=== PATIENT | female | born 1950 | race Two or more races ===

== ENCOUNTER 2019-08-06 17:44 | Emergency (ER) | payer MEDICARE, MEDICAID ==
[~2019-08-06] VITALS: Ht 149.9 cm; Wt 68.0 kg
--- NOTE | 2019-08-06 17:55 | NUR ---
GENERAL BODY PAIN S/P GLF ON JULY 12. NO RELIEF FROM IBU. PATIENT A/OX4, NO DISTRESS NOTED, PLACED ON THE BED, CHANGED INTO GOWN. ATTACHED TO THE INTEGRATED LOGIST[employer] OPERATIONS MANAGER.
--- NOTE | 2019-08-06 19:15 | NUR ---
PATIENT SEEN BY DR. REINOSO FOR EVAL.
[2019-08-06] MEDS ORDERED: CYCLOBENZAPRINE 10 MG TABLET ONE (19:44)
[2019-08-06] MEDS ORDERED: ACETAMINOPHEN 325 MG TABLET ONE (19:45)
--- NOTE | 2019-08-06 19:52 | NUR ---
BHUPENDRA # , CALL FOR HOMEBIRTH MIDWIFE.
[2019-08-06] MEDS ORDERED: CYCLOBENZAPRINE 10 MG TABLET PO ONE (20:00)
[2019-08-06] MEDS ORDERED: ACETAMINOPHEN 325 MG TABLET PO ONE (20:00)
--- NOTE | 2019-08-06 21:08 | NUR ---
ANDREE PICKING UP PATIENT.
[2019-08-06 21:20] VITALS: BP 138/75
--- NOTE | 2019-08-06 21:20 | NUR ---
Patient discharged to home in stable condition. Written and verbal after care instructions given. Patient verbalizes understanding of instruction. Pt ambulatory with a steady gait
== END 2019-08-06 21:21 | disposition home or self-care (01) ==
LOC: ER 17:45
DX: M62.830 Muscle spasm of back (principal); M54.6 Pain in thoracic spine; I10 Essential (primary) hypertension; E11.9 Type 2 diabetes mellitus without complications; E78.00 Pure hypercholesterolemia, unspecified; Z60.2 Problems related to living alone

== ENCOUNTER 2022-04-28 12:24 | Emergency (ER) | payer OTHER ==
[~2022-04-28] VITALS: Ht 152.4 cm; Wt 65.8 kg
--- NOTE | 2022-04-28 12:32 | NUR ---
MISTY [id number]"From Home CP started this am sharp radiating to left arm initial 07/10 given Nitro now 04/09 BS-154. PT AAOX4, VSS. RR EVEN & UNLABORED. PLACED ON HOSPITAL AIDE, SR. PT SEEN & EVAL'D BY DR. LANCASTER. WILL CONT TO MONITOR.
--- NOTE | 2022-04-28 12:37 | NUR ---
SWAB FOR COVID19 SENT TO LAB
--- NOTE | 2022-04-28 12:49 | NUR ---
X-RAY TECH. AT BED SIDE
[2022-04-28 12:52] LABS: BASOPHILS % (AUTO) 0.4 % (0.0-2.0); EOSINOPHILS % (AUTO) 1.3 % (0.0-6.0); HEMATOCRIT 37 % (33-45); HEMOGLOBIN 12.5 g/dL (11.5-14.8); LYMPHOCYTES # (AUTO) 4.3 K/uL (0.8-4.8); LYMPHOCYTES % (AUTO) 47.3 % (20.0-44.0); MEAN CORPUSCULAR HGB CONC 34 g/dl (31.0-36.0); MEAN CORPUSCULAR VOLUME 95 fL (82-100); MONOCYTES # (AUTO) 0.9 K/uL (0.1-1.30); MONOCYTES % (AUTO) 10.1 % (2.0-12.0); NEUTROPHILS # (AUTO) 3.7 K/uL (1.8-8.9); NEUTROPHILS % (AUTO) 40.9 % (43.0-81.0); PLATELET COUNT (AUTO) 302 K/uL (150-450); RED BLOOD CELL COUNT(AUTO) 3.87 MIL/uL (4.0-5.2)
[2022-04-28] MEDS ORDERED: SERT50TA12 PO (12:57)
[2022-04-28] MEDS ORDERED: SEMA7TAB PO (12:57)
[2022-04-28] MEDS ORDERED: LOSA25TA27 PO (12:57)
[2022-04-28] MEDS ORDERED: ASPI-1420 PO (12:57)
[2022-04-28] MEDS ORDERED: GABA300C PO (12:57)
[2022-04-28] MEDS ORDERED: SIMV-49 PO (12:57)
[2022-04-28] MEDS ORDERED: CYCL5.5D EACHEYE (12:57)
[2022-04-28] MEDS ORDERED: CHOL100043 PO (12:59)
[2022-04-28] MEDS ORDERED: VITA1TAB56 PO (12:59)
--- NOTE | 2022-04-28 13:14 | NUR ---
PT SITTING UP, DENIES CP, SOB, DIZZINESS, N/V, VARGAS AT THIS TIME. ON TELE, SR. WILL CONT TO MONITOR.
--- NOTE | 2022-04-28 13:15 | NUR ---
MOVE SHEET SUBMITTED.
--- NOTE | 2022-04-28 13:41 | NUR ---
LEONARDO SAMPSON REGAL [phone] PT GOING TO [facility].
[2022-04-28 13:58] LABS: ALANINE AMINOTRANSFERASE 21 U/L (12-78); ALBUMIN 3.6 g/dL (3.4-5.0); ALKALINE PHOSPHATASE 84 U/L (46-116); ASPARTATE AMINOTRANSFERASE 19 U/L (15-37); BILIRUBIN,DIRECT 0.1 mg/dL (0.0-0.2); BILIRUBIN,TOTAL 0.3 mg/dL (0.2-1.0); CALCIUM, SERUM 9.2 mg/dL (8.5-10.1); CARBON DIOXIDE 24 mmol/L (21-32); CHLORIDE 106 mmol/L (98-107); CREATININE 0.9 mg/dL (0.6-1.3); GLUCOSE 117 mg/dL (74-106); SODIUM SERUM 139 mmol/L (136-145); TOTAL PROTEIN, SERUM 8.1 g/dL (6.4-8.2); UREA NITROGEN, BLOOD 13 mg/dL (7-18)
--- NOTE | 2022-04-28 14:45 | NUR ---
DR. LANCASTER PEER TO PEER W DR. STRONG.
--- NOTE | 2022-04-28 16:02 | NUR ---
SPOKE TO CM FOR UPDATE, WAITING ON BED AVAILABILITY.
--- NOTE | 2022-04-28 16:07 | NUR ---
PT ASLEEP, EASILY AWAKEN BY VERBAL STIMULI. DENIES CP, SOB, DIZZINESS, N/V, VARGAS AT THIS TIME. ON TELE, SR. WILL CONT TO MONITOR.
--- NOTE | 2022-04-28 17:59 | NUR ---
ACCEPTED AT [facility] DR. STRONG ROOM [id number] [phone] MOTOR LODGE CLERK ETA 2130 FOR TRANSPORT
--- NOTE | 2022-04-28 18:11 | NUR ---
CALLED [facility] FOR REPORT, NO ANSWER.
--- NOTE | 2022-04-28 20:32 | NUR ---
REPORT GIVEN TO MIA
--- NOTE | 2022-04-28 21:47 | NUR ---
JERMAINE GLASS [employer]GARCANE PLANTER TO FOLLOW UP WITH THE TRANSPORTATION. [facility] IS THE ASSIGNED AMBULANCE
--- NOTE | 2022-04-28 22:16 | NUR ---
QUAN JOURNEYMAN LINEMAN CALLED BACK. NEW ASSIGNED ROOM 215-A / NURSE MIA / FREDY NUMBER FOR REPORT: AMBULANCE ETA 5 MINUTES.
[2022-04-28 22:34] VITALS: BP 156/70
--- NOTE | 2022-04-28 22:34 | NUR ---
PT PICKED UP BY [facility]. V/S STABLE AT TIME OF TRANSFER. PT PACKET PROVIDED TO PUBLIC HEALTH SERVICE OFFICER.
== END 2022-04-28 22:35 | disposition short-term general hospital (02) ==
LOC: ER 12:42
DX: R07.9 Chest pain, unspecified (principal); Z20.822 Contact with and (suspected) exposure to COVID-19; R94.31 Abnormal electrocardiogram [ECG] [EKG]; Z79.899 Other long term (current) drug therapy; E78.00 Pure hypercholesterolemia, unspecified; I10 Essential (primary) hypertension; E11.9 Type 2 diabetes mellitus without complications
CPT/HCPCS: 36415; 71045; 80048; 80076; 83880; 84484; 85025; 87081; 87426; 93005; 99285; C9803

== ENCOUNTER 2025-02-15 07:39 | Inpatient (IN) | payer MEDICARE, OTHER ==
[~2025-02-15] VITALS: Ht 154.9 cm; Wt 72.6 kg
[~2025-02-15 07:39] MED LIST: ASPI-1420 PO; CHOL100043 PO; CYCL5.5D EACHEYE; GABA300C PO; LOSA25TA27 PO; SEMA7TAB PO; SERT50TA12 PO; SIMV-49 PO; VITA1TAB56 PO
[2025-02-15] MEDS ORDERED: ONDANSETRON HCL/PF 4 MG/2 ML VIAL ONE (08:14)
[2025-02-15] MEDS ORDERED: MORPHINE SULFATE INJ 4 MG/ML DISP.SYRIN ONE (08:15)
[2025-02-15 08:20] LABS: BASOPHILS % (AUTO) 0.3 % (0.0-2.0); EOSINOPHILS # (AUTO) 0.1 K/uL (0.0-0.7); EOSINOPHILS % (AUTO) 0.7 % (0.0-6.0); HEMATOCRIT 43 % (33-45); HEMOGLOBIN 14.5 g/dL (11.5-14.8); LYMPHOCYTES # (AUTO) 4.4 K/uL (0.8-4.8); LYMPHOCYTES % (AUTO) 37.1 % (20.0-44.0); MEAN CORPUSCULAR HEMOGLOBIN 34 PG (26.0-33.0); MEAN CORPUSCULAR HGB CONC 34 g/dl (31.0-36.0); MEAN CORPUSCULAR VOLUME 99 fL (82-100); MONOCYTES # (AUTO) 0.9 K/uL (0.1-1.30); MONOCYTES % (AUTO) 7.9 % (2.0-12.0); NEUTROPHILS # (AUTO) 6.4 K/uL (1.8-8.9); PLATELET COUNT (AUTO) 297 K/uL (150-450); RED BLOOD CELL COUNT(AUTO) 4.31 MIL/uL (4.0-5.2); RED CELL DISTRIBUTION WIDTH 17.4 % (11.5-15.0); WHITE BLOOD COUNT (AUTO) 11.9 K/uL (4.3-11.0)
[2025-02-15 08:28] LABS: CALCIUM, SERUM 9.4 mg/dL (8.5-10.1); CREATININE 0.9 mg/dL (0.6-1.3); POTASSIUM 4.5 mmol/L (3.5-5.1)
[2025-02-15] MEDS: IV NS 0.9% 500 ML BAG IV ONE (08:36)
[2025-02-15] MEDS: MORPHINE SULFATE INJ 2 MG/ML DISP.SYRIN IV ONE (08:36)
[2025-02-15] MEDS: ONDANSETRON HCL/PF 4 MG/2 ML VIAL IVP ONE (08:37)
[2025-02-15] MEDS ORDERED: CT SWABBABLE VALVE TRANS SET 1 EA INFUS.SET MC ONE (08:48)
[2025-02-15] MEDS ORDERED: IV NS 0.9% 250 ML IV ONE (08:48)
[2025-02-15] MEDS ORDERED: IOHEXOL-300 100 ML VIAL IV ONE ×2 (08:48)
[2025-02-15] MEDS ORDERED: MAGNESIUM HYDROXIDE 30 ML UDC PO PRN (12:00)
[2025-02-15] MEDS ORDERED: ONDANSETRON HCL/PF 4 MG/2 ML VIAL IVP PRN (12:00)
[2025-02-15] MEDS ORDERED: MAG HYDROX/AL HYDROX/SIMETH 30 ML UDC PO PRN (12:00)
[2025-02-15] MEDS ORDERED: OMEG100037 PO (15:04)
[2025-02-15] MEDS ORDERED: EZET10TA32 PO (15:04)
[2025-02-15] MEDS ORDERED: TIZA-180 PO (15:04)
[2025-02-15] MEDS ORDERED: EMPA10TA PO (15:04)
[2025-02-15] MEDS ORDERED: REPA0.5T6 PO (15:04)
[2025-02-15] MEDS ORDERED: HYDROCODONE/APAP 5/325MG TABLET PO PRN (15:30)
[2025-02-15] MEDS ORDERED: DEXTROSE 50%-WATER 50 ML DISP.SYRIN IV PRN (15:30)
[2025-02-15] MEDS ORDERED: Medication Not On Formulary EA (Omega-3/Dha/Epa/Fish Oil (Fish Oil 1,000 mg Softgel) 2,0 PO SCH (17:00)
[2025-02-15] MEDS: BLOOD SUGAR DIAGNOSTIC 1 EACH STRIP IN SCH (17:33)
[2025-02-15] MEDS: REPAGLINIDE 0.5 MG TABLET PO SCH (17:48)
[2025-02-15] MEDS: SIMVASTATIN 20 MG TABLET PO SCH (17:48)
[2025-02-15] MEDS: GABAPENTIN 300 MG CAPSULE PO SCH (17:48)
[2025-02-15] MEDS: ENOXAPARIN SODIUM 40 MG/0.4 ML DISP.SYRIN SQ SCH (17:49)
[2025-02-15] MEDS: ACETAMINOPHEN 325 MG TABLET PO PRN (19:54)
[2025-02-15 20:00] VITALS: BP 133/80; TEMP 98.1; O2SAT 97
[2025-02-16 06:40] LABS: BASOPHILS % (AUTO) 0.3 % (0.0-2.0); EOSINOPHILS # (AUTO) 0.1 K/uL (0.0-0.7); EOSINOPHILS % (AUTO) 0.4 % (0.0-6.0); HEMATOCRIT 40 % (33-45); HEMOGLOBIN 13.8 g/dL (11.5-14.8); LYMPHOCYTES # (AUTO) 4.7 K/uL (0.8-4.8); LYMPHOCYTES % (AUTO) 38.6 % (20.0-44.0); MEAN CORPUSCULAR HEMOGLOBIN 34 PG (26.0-33.0); MEAN CORPUSCULAR HGB CONC 35 g/dl (31.0-36.0); MEAN CORPUSCULAR VOLUME 98 fL (82-100); MONOCYTES # (AUTO) 1.3 K/uL (0.1-1.30); MONOCYTES % (AUTO) 11.1 % (2.0-12.0); NEUTROPHILS % (AUTO) 49.6 % (43.0-81.0); PLATELET COUNT (AUTO) 298 K/uL (150-450); RED BLOOD CELL COUNT(AUTO) 4.08 MIL/uL (4.0-5.2); RED CELL DISTRIBUTION WIDTH 17.4 % (11.5-15.0); WHITE BLOOD COUNT (AUTO) 12.1 K/uL (4.3-11.0)
[2025-02-16 06:49] LABS: MAGNESIUM 2.3 mg/dL (1.8-2.4); PHOSPHORUS 3.8 mg/dL (2.5-4.9)
[2025-02-16 08:00] VITALS: BP 119/59; TEMP 98.2; O2SAT 96
[2025-02-16] MEDS: EZETIMIBE 10 MG TABLET PO SCH (09:08)
[2025-02-16] MEDS: LOSARTAN POTASSIUM 25 MG TABLET PO SCH (09:08)
[2025-02-16] MEDS: TIZANIDINE HCL 4 MG TABLET PO SCH (09:08)
[2025-02-16] MEDS: SERTRALINE HCL 50 MG TABLET PO SCH (09:08)
[2025-02-16] MEDS: PANTOPRAZOLE 40 MG VIAL IV SCH (09:09)
[2025-02-16] MEDS: EMPAGLIFLOZIN 10 MG TABLET PO SCH (09:10)
[2025-02-16 16:00] VITALS: BP 96/64; TEMP 97.9
[2025-02-16] MEDS: INSULIN REGULAR, HUMAN 100 UNIT/ML 3 ML VIAL SQ PRN (17:31)
[2025-02-16 20:00] VITALS: BP 104/63; TEMP 97.5; O2SAT 97
[2025-02-17 06:56] LABS: BASOPHILS % (AUTO) 0.3 % (0.0-2.0); EOSINOPHILS # (AUTO) 0.1 K/uL (0.0-0.7); HEMATOCRIT 38 % (33-45); HEMOGLOBIN 13.5 g/dL (11.5-14.8); LYMPHOCYTES # (AUTO) 4.7 K/uL (0.8-4.8); LYMPHOCYTES % (AUTO) 41.9 % (20.0-44.0); MEAN CORPUSCULAR HEMOGLOBIN 35 PG (26.0-33.0); MEAN CORPUSCULAR HGB CONC 35 g/dl (31.0-36.0); MEAN CORPUSCULAR VOLUME 98 fL (82-100); MONOCYTES % (AUTO) 8.8 % (2.0-12.0); NEUTROPHILS # (AUTO) 5.4 K/uL (1.8-8.9); PLATELET COUNT (AUTO) 272 K/uL (150-450); WHITE BLOOD COUNT (AUTO) 11.3 K/uL (4.3-11.0)
[2025-02-17 07:36] LABS: CALCIUM, SERUM 9.1 mg/dL (8.5-10.1); CREATININE 0.9 mg/dL (0.6-1.3); MAGNESIUM 2.3 mg/dL (1.8-2.4); PHOSPHORUS 2.9 mg/dL (2.5-4.9); POTASSIUM 3.9 mmol/L (3.5-5.1)
[2025-02-17 08:00] VITALS: BP 134/68; TEMP 98.4; O2SAT 96
[2025-02-17] MEDS: PANTOPRAZOLE 40 MG TABLET.DR PO SCH (09:02)
[2025-02-17] MEDS: IV NS 0.9% 1,000 ML IV SCH (11:06)
[2025-02-17 15:27] LABS: APPEARANCE,URINE SLIGHTLY CLOUDY (CLEAR); BILIRUBIN,URINE NEGATIVE (NEGATIVE); BLOOD, URINE TRACE-INTA Ery/uL (NEGATIVE); COLOR,URINE YELLOW (YELLOW); KETONES,URINE 3+ mg/dL (NEGATIVE); LEUKOCYTE ESTERASE ,URINE 1+ (NEGATIVE); NITRITE, URINE POSITIVE (NEGATIVE); PROTEIN,URINE NEGATIVE (NEGATIVE); UGLUCOSE 2+ mg/dL (NEGATIVE); UROBILINOGEN,URINE 0.2 EU/dL (0.2)
[2025-02-17 16:00] VITALS: BP_SYST 129; BP_SYST 96; BP_DIAS 61; BP_DIAS 64; TEMP 97.7; TEMP 98.6; O2SAT 94; O2SAT 97
[2025-02-17 16:08] LABS: ADD URINE CULTURE YES; BACTERIA,URINE 3+ /HPF (None Seen); SQUAMOUS EPITHELIAL CELL,UR 0-2 /HPF (None Seen)
[2025-02-17] MEDS: CEFTRIAXONE 1 G in IV D5W 50 ML IV SCH (17:21)
[2025-02-17 20:00] VITALS: BP 94/56; TEMP 98.5; O2SAT 98
[2025-02-18 07:12] LABS: BASOPHILS % (AUTO) 0.2 % (0.0-2.0); EOSINOPHILS # (AUTO) 0.1 K/uL (0.0-0.7); EOSINOPHILS % (AUTO) 1.7 % (0.0-6.0); HEMATOCRIT 39 % (33-45); HEMOGLOBIN 13.4 g/dL (11.5-14.8); LYMPHOCYTES # (AUTO) 3.9 K/uL (0.8-4.8); LYMPHOCYTES % (AUTO) 45.4 % (20.0-44.0); MEAN CORPUSCULAR HEMOGLOBIN 34 PG (26.0-33.0); MEAN CORPUSCULAR HGB CONC 34 g/dl (31.0-36.0); MEAN CORPUSCULAR VOLUME 98 fL (82-100); MONOCYTES # (AUTO) 0.9 K/uL (0.1-1.30); MONOCYTES % (AUTO) 10.6 % (2.0-12.0); NEUTROPHILS # (AUTO) 3.7 K/uL (1.8-8.9); NEUTROPHILS % (AUTO) 42.1 % (43.0-81.0); PLATELET COUNT (AUTO) 270 K/uL (150-450); RED BLOOD CELL COUNT(AUTO) 3.99 MIL/uL (4.0-5.2); RED CELL DISTRIBUTION WIDTH 17.1 % (11.5-15.0); WHITE BLOOD COUNT (AUTO) 8.7 K/uL (4.3-11.0)
[2025-02-18 07:20] LABS: CALCIUM, SERUM 8.8 mg/dL (8.5-10.1); CREATININE 0.7 mg/dL (0.6-1.3); MAGNESIUM 2.1 mg/dL (1.8-2.4)
[2025-02-18 08:00] VITALS: BP 137/81; TEMP 98.6; O2SAT 98
[2025-02-18 08:59] VITALS: BP 137/81
[2025-02-18 12:07] VITALS: TEMP 98.6
== END 2025-02-18 14:34 | DRG 563 ==
LOC: ER 07:43 → MED 13:51
DX: S39.012A Strain of muscle, fascia and tendon of lower back, initial encounter (principal); N39.0 Urinary tract infection, site not specified; S30.0XXA Contusion of lower back and pelvis, initial encounter; E11.9 Type 2 diabetes mellitus without complications; D72.829 Elevated white blood cell count, unspecified; R26.9 Unspecified abnormalities of gait and mobility; W10.9XXA Fall (on) (from) unspecified stairs and steps, initial encounter; Y92.009 Unspecified place in unspecified non-institutional (private) residence as the place of occurrence of the external cause; E78.00 Pure hypercholesterolemia, unspecified; I10 Essential (primary) hypertension; Z79.899 Other long term (current) drug therapy; Z79.82 Long term (current) use of aspirin; E78.5 Hyperlipidemia, unspecified
CPT/HCPCS: 36415; 71045-TC; 72131-TC; 80048-TC; 81001; 82962-TC; 83735-TC; 84100-TC; 85025-TC; 87086-TC; 87186-TC; 97110-TC; 97116-TC; 97530-TC; A4223; G0378; J0696; J1650; J1815; J2270; J2405; J2470; J7030; J7040; J7050; J7060; Q9967

== ENCOUNTER 2025-05-25 08:31 | Emergency (ER) | payer MEDICARE, OTHER ==
[~2025-05-25] VITALS: Ht 149.9 cm; Wt 66.7 kg
[~2025-05-25 08:31] MED LIST changes: -ASPI-1420 PO; -CHOL100043 PO; -CYCL5.5D EACHEYE; +EMPA10TA PO; +EZET10TA32 PO; +OMEG100037 PO; +REPA0.5T6 PO; +TIZA-180 PO; -VITA1TAB56 PO
[2025-05-25 09:04] LABS: BASOPHILS # (AUTO) 0.1 K/uL (0.0-0.2); BASOPHILS % (AUTO) 0.7 % (0.0-2.0); EOSINOPHILS # (AUTO) 0.1 K/uL (0.0-0.7); EOSINOPHILS % (AUTO) 1.1 % (0.0-6.0); HEMATOCRIT 40 % (33-45); HEMOGLOBIN 13.5 g/dL (11.5-14.8); LYMPHOCYTES # (AUTO) 4.9 K/uL (0.8-4.8); LYMPHOCYTES % (AUTO) 51.6 % (20.0-44.0); MEAN CORPUSCULAR HEMOGLOBIN 34 PG (26.0-33.0); MEAN CORPUSCULAR HGB CONC 34 g/dl (31.0-36.0); MEAN CORPUSCULAR VOLUME 99 fL (82-100); MONOCYTES # (AUTO) 0.8 K/uL (0.1-1.30); MONOCYTES % (AUTO) 8.6 % (2.0-12.0); NEUTROPHILS # (AUTO) 3.6 K/uL (1.8-8.9); PLATELET COUNT (AUTO) 278 K/uL (150-450); RED BLOOD CELL COUNT(AUTO) 4.02 MIL/uL (4.0-5.2); RED CELL DISTRIBUTION WIDTH 16.5 % (11.5-15.0); WHITE BLOOD COUNT (AUTO) 9.4 K/uL (4.3-11.0)
[2025-05-25 09:14] LABS: CALCIUM, SERUM 8.7 mg/dL (8.5-10.1); CARBON DIOXIDE 23 mmol/L (21-32); CHLORIDE 104 mmol/L (98-107); CREATININE 0.9 mg/dL (0.6-1.3); GLUCOSE 127 mg/dL (74-106); POTASSIUM 3.5 mmol/L (3.5-5.1); SODIUM SERUM 138 mmol/L (136-145); UREA NITROGEN, BLOOD 12 mg/dL (7-18)
[2025-05-25 09:20] LABS: ALANINE AMINOTRANSFERASE 24 U/L (12-78); ALBUMIN 3.6 g/dL (3.4-5.0); ALKALINE PHOSPHATASE 90 U/L (46-116); ASPARTATE AMINOTRANSFERASE 23 U/L (15-37); BILIRUBIN,DIRECT 0.2 mg/dL (0.0-0.2); BILIRUBIN,TOTAL 0.5 mg/dL (0.2-1.0); TOTAL PROTEIN, SERUM 7.9 g/dL (6.4-8.2)
[2025-05-25 09:36] LABS: APPEARANCE,URINE CLEAR (CLEAR); BILIRUBIN,URINE SMALL (NEGATIVE); BLOOD, URINE Negative Ery/uL (NEGATIVE); COLOR,URINE YELLOW (YELLOW); KETONES,URINE Negative (NEGATIVE); LEUKOCYTE ESTERASE ,URINE Negative (NEGATIVE); PROTEIN,URINE Negative (NEGATIVE); UGLUCOSE >=1000 mg/dL (NEGATIVE); UROBILINOGEN,URINE 0.2 EU/dL (0.2)
[2025-05-25 09:45] LABS: NITRITE, URINE NEGATIVE (NEGATIVE)
[2025-05-25 09:49] LABS: LYMPHOCYTES % (MANUAL) 52 % (16-48); NEUTROPHILS % (MANUAL) 41 (42-76)
[2025-05-25 09:50] LABS: MONOCYTES % (MANUAL) 7 % (0-11.0); PLATELET ESTIMATE ADEQUATE
[2025-05-25 09:53] LABS: ADD URINE CULTURE NO; BACTERIA,URINE Rare /HPF (None Seen); RBC,URINE 0-2 /HPF (0-2); SQUAMOUS EPITHELIAL CELL,UR Many /HPF (None Seen)
[2025-05-25] MEDS: IV NS 0.9% 1,000 ML BAG IV ONE (10:15)
[2025-05-25 11:57] VITALS: BP 144/71; TEMP 98.4; O2SAT 97
== END 2025-05-25 11:58 | disposition home or self-care (01) ==
LOC: ER 08:49
DX: R42 Dizziness and giddiness (principal); I10 Essential (primary) hypertension; E78.5 Hyperlipidemia, unspecified; E11.9 Type 2 diabetes mellitus without complications; Z79.84 Long term (current) use of oral hypoglycemic drugs; Z79.899 Other long term (current) drug therapy
CPT/HCPCS: 99285; 96360; 70450; 71045; 93005; 85025; 80048; 80076; 81001; 36415; 84443; 84484; 82962; J7030